=== PATIENT | female | born 1970 | race Caucasian/White ===

== ENCOUNTER 2022-04-09 10:37 | Outpatient (CLI) | payer OTHER ==
[~2022-04-09 10:37] MED LIST: CIPRO500 MG PO; SYNTHROID175 MCG
== END 2022-04-09 10:38 | disposition home or self-care (01) ==
LOC: MAMO-SONO 10:37
DX: N63.0 Unspecified lump in unspecified breast (principal)

== ENCOUNTER 2023-06-10 09:21 | Outpatient (CLI) | payer OTHER | END 2023-06-10 09:25 | disposition home or self-care (01) | LOC: MAMO-SONO 09:21 | PROVIDERS: ATTEND General Practice | DX: Z12.31 Encounter for screening mammogram for malignant neoplasm of breast (principal); N60.19 Diffuse cystic mastopathy of unspecified breast; M54.50 Low back pain, unspecified ==

== ENCOUNTER 2023-08-26 08:11 | Outpatient (CLI) | payer OTHER | END 2023-08-26 08:22 | disposition home or self-care (01) | LOC: SONOGRAMA 08:11 | PROVIDERS: ATTEND Obstetrics & Gynecology | DX: D25.1 Intramural leiomyoma of uterus (principal) ==

== ENCOUNTER 2025-02-14 09:52 | Outpatient (CLI) | payer OTHER | END 2025-02-14 09:53 | disposition home or self-care (01) | LOC: MAMO-SONO 09:52 | DX: M06.9 Rheumatoid arthritis, unspecified (principal); M54.50 Low back pain, unspecified; M46.1 Sacroiliitis, not elsewhere classified; M25.551 Pain in right hip; M25.552 Pain in left hip ==

== ENCOUNTER 2025-02-15 09:44 | Outpatient (CLI) | payer OTHER | END 2025-02-15 09:46 | disposition home or self-care (01) | LOC: SONOGRAMA 09:44 | DX: M06.9 Rheumatoid arthritis, unspecified (principal) ==